=== PATIENT | female | born 1945 | race Caucasian/White ===

== ENCOUNTER 2017-07-16 17:07 | Emergency (ER) | payer BC, OTHER ==
[~2017-07-16] VITALS: Ht 152.4 cm; Wt 68.0 kg
[~2017-07-16 17:07] MED LIST: CALCIUM + VITA1 EAC1 PO; MULTIVITAMINS1 EAC7 PO; NORCO 5-325 TA1 EACH PO
[2017-07-16 18:52] LABS: ABSOLUTE NEUTROPHILS 7.5 thou/uL (1.4-8.2); BASOPHILS 0.2 % (0.0-2.0); EOSINOPHILS 18.7 % (0.0-3.0); HEMATOCRIT 38.8 % (37.0-47.0); LYMPHOCYTES 18.6 % (24.0-44.0); MCH 30.2 pg (26.0-34.0); MCHC 33.5 g/dL (28.0-37.0); MCV 90.2 fL (80.0-100.0); MONOCYTES 4.1 % (1.0-8.0); PLATELET COUNT 193 thou/uL (150-400); POLYS 58.4 % (36.0-66.0); RDW 14.1 % (10.5-14.5); WBC 12.9 thou/uL (4.0-11.0)
[2017-07-16 18:59] LABS: CALCIUM 9.2 mg/dL (8.5-10.1); CREATININE 0.5 mg/dL (0.6-1.0)
[2017-07-16] MEDS ORDERED: HYDROCODONE-AP1 EAC6 PO (19:13)
[2017-07-16] MEDS ORDERED: IBUPROFEN 600600 M1 PO (19:13)
[2017-07-16 19:23] VITALS: BP 162/76
== END 2017-07-16 19:24 | disposition home or self-care (01) ==
LOC: ER 17:07
PROVIDERS: Physician Assistant
DX: M25.562 Pain in left knee (principal); M19.90 Unspecified osteoarthritis, unspecified site

== ENCOUNTER 2018-11-24 17:21 | Emergency (ER) | payer OTHER ==
[~2018-11-24] VITALS: Ht 170.2 cm; Wt 84.4 kg
[~2018-11-24 17:21] MED LIST changes: +HYDROCODONE-AP1 EAC6 PO; +IBUPROFEN 600600 M1 PO
[2018-11-24 17:48] LABS: HEMATOCRIT 39.4 % (37.0-47.0); HEMOGLOBIN 13.1 gm/dL (12.0-15.0); MCHC 33.4 g/dL (28.0-37.0); MCV 89.8 fL (80.0-100.0); PLATELET COUNT 178 thou/uL (150-400); RBC 4.38 mil/uL (4.20-5.00); RDW 14.1 % (10.5-14.5); WBC 11.6 thou/uL (4.0-11.0)
[2018-11-24 17:56] LABS: ANION GAP 9 mmol/L (7-16); BUN 20 mg/dL (7-18); CALCIUM 9.1 mg/dL (8.5-10.1); CHLORIDE 106 mmol/L (98-107); CO2 25 mmol/L (21-32); CREATININE 0.7 mg/dL (0.6-1.0); GLUCOSE 133 mg/dL (74-106); POTASSIUM 3.7 mmol/L (3.5-5.1); SODIUM 140 mmol/L (136-145)
[2018-11-24 18:06] LABS: ALBUMIN 3.8 g/dL (3.4-5.0); LIPASE 198 U/L (73-393); SGOT 22 U/L (15-37); SGPT 23 U/L (30-65); TOTAL BILIRUBIN 0.4 mg/dL (<0.1-1.0); TOTAL PROTEIN 7.5 g/dL (6.4-8.2); TROPONIN-I <0.06 ng/mL (<0.06)
[2018-11-24 18:27] LABS: ABSOLUTE NEUTROPHILS 5.5 thou/uL (1.4-8.2); ANISOCYTOSIS 1+
[2018-11-24 18:42] VITALS: BP 118/52
--- NOTE | 2018-11-25 07:39 | EKG ---
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 : 1945 Requested By: Mike Funez Order Number: [id number] MD: Santos Vallejo Measurements Intervals [place] Rate: 61 P: 41 RI: 162 QRS: 43 QRSD: 97 T: 31 QT: 432 QTc: 435 Interpretive Statements Sinus rhythm Normal tracing Compared to ECG 01/06/2013 16:09:45 No significant changes Electronically Signed On 11-25-2018 7:39:19 CDT by Santos Vallejo [email or web address] ��������������������������������������������� <ELECTRONICALLY SIGNED> ���������������������������������������� By: Santos Vallejo MD, [facility] ��������������������������������������������� 11/25/18 0739 1734 1734 Santos Vallejo MD, FACC /EPI
== END 2018-11-24 18:43 | disposition home or self-care (01) ==
LOC: ER 17:21
PROVIDERS: Emergency Medicine
DX: R10.13 Epigastric pain (principal); R11.2 Nausea with vomiting, unspecified; M19.90 Unspecified osteoarthritis, unspecified site; Z98.890 Other specified postprocedural states